=== PATIENT | female | born 1940 | race Caucasian/White ===

== ENCOUNTER 2019-11-03 14:52 | Emergency (ER) | payer OTHER ==
--- NOTE | 2019-11-03 15:17 | RAD REPORT ---
EXAM DESCRIPTION: CT - Ct Stroke Brain Wo Cont - 11/03/2019 3:07 pm CLINICAL HISTORY: Left-sided facial weakness, left-sided facial droop and slurred speech CLINICAL HISTORY: October 2016 TECHNIQUE: Axial 5 millimeter thick images of the head were obtained without IV contrast. All CT scans are performed using dose optimization technique as appropriate and may include automated exposure control or mA/KV adjustment according to patient size. FINDINGS: No intracranial hemorrhage, mass, or cerebral edema. No acute infarction identifiable. No cortical edema or sulcal effacement. Mild to moderate atrophy and chronic ischemic changes are presen t similar to comparison. Babcock matter-white matter differentiation is preserved. Ventricles are in proportion to volume loss. Arterial and physiologic calcifications are present. Visualized portions of the mastoid air cells, paranasal sinuses, and orbits are unremarkable. Findings telephoned to the referring clinician 3:13 p.m.. IMPRESSION: No CT evidence of acute intracranial process. Atrophy and chronic ischemic changes are present similar to 2016. Chronic ischemic changes can mask nonhemorrhagic acute infarction. MR brain followup can be obtained if there is ongoing concern for acute ischemia.
[2019-11-03 15:20] LABS: Absolute Lymphocytes (CBC) 1.9 K/uL (0.7-4.9); Basophils % 0.6 % (0-1.3); Hematocrit 39.4 % (36.0-45.0); Lymphocytes % 31.5 % (15.3-44.8); MPV 10.9 fL (7.6-11.3); RBC Red Blood Cell Count 4.03 M/uL (3.86-4.86)
[2019-11-03 15:23] LABS: Protime INR 0.98
[2019-11-03 15:26] LABS: Potassium 4.6 mmol/L (3.5-5.1)
--- NOTE | 2019-11-03 16:18 | RAD REPORT ---
EXAM DESCRIPTION: RAD - Chest Single View - 11/03/2019 3:44 pm CLINICAL HISTORY: Code stroke chest film, left-sided facial weakness, altered mental status COMPARISON: November 2017 TECHNIQUE: AP portable chest image was obtained 1518 hour . FINDINGS: Lung volumes are very low accentuating heart, vasculature and lung markings. No dense cons olidation or mass. No prominent pulmonary edema. Mild interstitial edema or infiltrate could be maske d. Pacemaker is again noted. PICC line has been removed since prior imaging. No measurable pleural ef fusion and no pneumothorax. No acute bony abnormality seen. No acute aortic findings suspected. IMPRESSION: Limited portable imaging without peripheral mass or consolidation. Mild failure/ volume overload could easily be masked by the chronic disease and low lung volume.
--- NOTE | 2019-11-03 16:18 | EKG ---
Test Date: 2019-11-03 Test Time: 15:20:21 Contracts Paralegal: DHARMESH MEASUREMENT RESULTS: Intervals: Rate: 72 NM: QRSD: 166 QT: 490 QTc: 536 [place]: P: NM: QRS: -56 T: 103 INTERPRETIVE STATEMENTS: Atrial-sensed ventricular-paced rhythm with occasional premature ventricular complexes Abnormal ECG Compared to ECG 11/19/2017 20:52:04 Ventricular premature complex(es) now present Electronically Signed On 11-03-19 16:18:04 SCHOOL PSYCHOLOGIST ASSISTANT by Lencho Figueroa
--- NOTE | 2019-11-03 19:04 | RAD REPORT ---
EXAM DESCRIPTION: CT - Head angio - 11/03/2019 6:05 pm CLINICAL HISTORY: stroke symptoms TECHNIQUE: During dynamic enhancement using nonionic IV contrast, axial 1 millimeter thick images of the head were obtained. Sagittal and axial reconstruction images were generated using MIP technique and reviewed. All CT scans are performed using dose optimization technique as appropriate and may include automated exposure control or mA/KV adjustment according to patient size. COMPARISON: CT head same date FINDINGS: No aneurysm or vascular malformation identified. Major venous sinuses are patent. No stenosis, named branch occlusion, vasculitis or other significant vascular finding identifiable. R ight posterior cerebral artery is supplied via enlarged posterior communicating artery as a normal va riant. Patient has prominent cavernous carotid calcifications. IMPRESSION: No occlusion, significant stenosis or other significant vascular finding.
--- NOTE | 2019-11-03 20:44 | ER ---
Nurse's Notes [facility] Name: Chio Abarca Age: 78 yrs Sex: Female : 1940 Arrival Date: 11/03/2019 Time: 14:55 Bed 7 Private MD: Diagnosis: Altered mental status, unspecified Presentation: 11/03 14:51 Presenting complaint: EMS states: called out for [facility] 45min-1 hr [employer] [facility] arrival, pt is sv normally A\T\Ox3 but was then A\T\Ox2 stated by staff, left sided facial droop, Afib w/ 2 runs of VTach. Transition of care: patient was received from another setting of care (long-term care facility), [facility]. Onset of symptoms was November 03, 2019. Risk Assessment: Do you want to hurt yourself or someone else? Patient reports no desire to harm self or others. Initial Sepsis Screen: Does the patient meet any 2 criteria? Altered Mental Status. No. Patient's initial sepsis screen is negative. Does the patient have a suspected source of infection? No. Patient's initial sepsis screen is negative. Care prior to arrival: IV attempted but was unsuccessful. 14:51 Method Of Arrival: EMS: [facility] sv 14:54 Note Called and spoke with nurse at [facility] and she stated that pt's last known sv well was around 1400. She stated that the pt was in the DONs office with the doctor and pt was normal at that time and placed out in the hallway. They went to go see her and noted she was not normal. Stated she had slurred speech, left sided arm and leg weakness, tongue was deviated to the right and no facial droop was noted at that time. Informed Dr Rees of what the HI staff stated and we are to call a Code Stroke. 14:56 Acuity: LADY 2 sv Triage Assessment: 14:55 General: Appears in no apparent distress. uncomfortable, well developed, Behavior is sv cooperative, appropriate for age, flat. Pain: Denies pain. Neuro: Level of Consciousness is awake, obeys commands, confused, Oriented to person, place, Moves all extremities. Speech is slurred, Facial droop on left. Cardiovascular: Patient's skin is warm and dry. Rhythm is atrial fibrillation. Respiratory: Airway is patent Respiratory effort is even, unlabored, Respiratory pattern is regular, symmetrical. Derm: Skin is pale. Historical: - Allergies: 15:10 Metformin HCl; sv - Home Meds: 16:27 Abilify 5 mg oral tab 2 tabs once daily [Active]; Depakote Sprinkles 125 mg Oral cpSP 8 sv caps nightly [Active]; Levemir 100 unit/mL subcutaneous soln 20 unit daily [Active]; levothyroxine 25 mcg tab 1 tab once daily [Active]; Novolog 100 unit/mL Sub-Q soln [Active]; simvastatin 20 mg Oral tab 1 tab once daily [Active]; Xarelto 20 mg Oral tab 1 tab nightly [Active]; Zoloft 100 mg Oral tab 1 tab once daily [Active]; - PMHx: 15:10 Diabetes - NIDDM; Hypothyroidism; iron deficiency; Dementia; Muscle weakness; Psychotic sv disorder w/ delusions; Anxiety; Depression; Hypertension; Atrial Fib; CHF; Cardiac pacemaker; Right ankle pressure ulcer; Arthritis; - Immunization history:: Adult Immunizations up to date. - Social history:: Smoking status: Patient/guardian denies using tobacco. - Ebola Screening: : No symptoms or risks identified at this time. Screenin:00 Abuse screen: Denies threats or abuse. Denies injuries from another. Nutritional sv screening: No deficits noted. Tuberculosis screening: No symptoms or risk factors identified. Fall Risk No fall in past 12 months (0 pts). Secondary diagnosis (15 points) dementia, No IV (0 pts). Ambulatory Aid- None/Bed Rest/Nurse Assist (0 pts). Gait- Normal/Bed Rest/Wheelchair (0 pts) Mental Status- Overestimates/Forgets Limitations (15 pts.). Total Castañeda Fall Scale indicates Low Risk Score (25-44 pts). Fall prevention measures have been instituted. Side Rails Up X 2 Placed close to Nursing Station Frequent Obs/Assesments occuring As available Patient and Family Educated on Fall Prevention Program and strategies. 16:22 Patient has been NPO before screening. The patient is alert, able to follow commands. sv The patient exhibits slurred or garbled speech. Provider notified of indication for Speech Therapy consult. The patient failed the bedside swallow screening. The patient will be kept NPO until cleared by Speech Therapy or Physician. Provider notified of bedside swallow screening results: Tj Rees MD. Assessment: 14:52 Reassessment: Dr Rees at the bedside. sv 15:01 Reassessment: Code Stroke called. sv 16:15 Reassessment: Patient appears in no apparent distress at this time. No changes from sv previously documented assessment. Patient and/or family updated on plan of care and expected duration. Pain level reassessed. Family at the bedside. 18:23 Reassessment: Patient appears in no apparent distress at this time. No changes from sv previously documented assessment. Patient and/or family updated on plan of care and expected duration. Pain level reassessed. 19:35 General: Appears in no apparent distress. comfortable, Behavior is calm, cooperative. ao Pain: Complains of pain in headache. Neuro: Level of Consciousness is awake, alert, obeys commands, Oriented to person, place, time, situation, Appropriate for age Moves all extremities. Full function Speech is normal. Cardiovascular: Heart tones S1 S2 Capillary refill < 3 seconds. Respiratory: Airway is patent Respiratory effort is even, unlabored, Respiratory pattern is regular, symmetrical. GI: Abdomen is round obese. : No signs and/or symptoms were reported regarding the genitourinary system. EENT: No signs and/or symptoms were reported regarding the EENT system. Derm: Skin is intact, Skin is pink, warm \T\ dry. Skin temperature is warm Decubitus. Musculoskeletal: No signs and/or symptoms reported regarding the musculoskeletal system. 20:16 Reassessment: Patient appears in no apparent distress at this time. Patient and/or ao family updated on plan of care and expected duration. Pain level reassessed. 20:53 Reassessment: Called report to [facility] and gave report to Angel. Pt is being ao discharge from the hospital. Angel stated he will call [facility] for transportation. 21:54 Reassessment: Patient appears in no apparent distress at this time. Patient is alert, ao oriented x 3, equal unlabored respirations, skin warm/dry/pink. Waiting on transportation. 22:09 Reassessment: Hand off care to [facility] for transportation. Pt VS stable. ao Vital Signs: 14:52 BP 145 / 80; Pulse 73; Resp 18; Temp 98; Pulse Ox 100% ; Pain 0/10; sv 15:16 BP 173 / 87; Pulse 69; Resp 18; Pulse Ox 100% ; sv 15:45 BP 164 / 88; Pulse 72; Resp 18; Pulse Ox 100% ; sv 16:23 BP 127 / 99; Pulse 74; Resp 19; Pulse Ox 100% ; sv 16:58 BP 146 / 86; Pulse 72; Resp 19; Pulse Ox 98% on R/A; sv 17:45 BP 157 / 99; Pulse 77; Resp 16; Pulse Ox 100% ; sv 18:23 BP 145 / 98; Pulse 71; Resp 20; Pulse Ox 100% ; sv 20:16 BP 149 / 103; Pulse 73; Resp 16; Pulse Ox 97% ; ao 21:39 BP 143 / 84; Pulse 77; Resp 19; Pulse Ox 100% on R/A; lp1 22:11 BP 123 / 86; Pulse 74; Resp 18; Pulse Ox 96% ; ao ED Course: 14:55 Patient arrived in ED. sv 14:55 Lala Kapoor, RN is Primary Nurse. sv 14:55 Initial lab(s) drawn, by ED staff, sent to lab. sv 14:57 Triage completed. sv 14:58 Tj Rees MD is Attending Physician. kdr 15:00 Inserted saline lock: 20 gauge in right antecubital area, using aseptic technique. sg Blood collected. 15:00 inspector coated fabrics on. Pulse ox on. NIBP on. sv 15:[address] via stretcher. sv 15:01 Patient has correct armband on for positive identification. Bed in low position. Call sg light in reach. Side rails up X2. 15:05 Arm band placed on. sv 15:10 Patient moved back from CT. sv 15:13 CT Stroke Brain w/o Contrast In Process Unspecified. EDMS 15:44 Stroke CXR 1 View In Process Unspecified. EDMS 17:[address] via stretcher. sv 18:06 Head angio In Process Unspecified. EDMS 18:15 Patient moved back from CT. sv 18:43 Awaiting radiology results. sv 19:04 Primary Nurse role handed off by Lala Kapoor, RN sv 19:04 Report given to Rose CALLES and Clemente CALLES. sv 19:08 Clemente Rodriguez RN is Primary Nurse. ao 22:11 No provider procedures requiring assistance completed. IV discontinued, intact, ao bleeding controlled, No redness/swelling at site. Pressure dressing applied. Administered Medications: No medications were administered Point of Care Testing: Blood Glucose: 15:00 Blood Glucose: 139 mg/dL; sg Ranges: Outcome: 20:44 Discharge ordered by . tw4 22:11 Discharged to residential. Report called to STEVAN Ortizautomatic beam warper tender form completed. ao Valuables list done. [facility] 22:11 Condition: stable 22:12 Instructed on discharge instructions, follow up and referral plans. ao 22:12 Patient left the ED. ao Signatures: Dispatcher [employer] EDMS Lala Kapoor RN RN Eddie Blancas RN RN Tj Humphries MD MD kdr Pena, Laura, RN RN 1 Clemente Rodriguez RN Lauri Mack MD MD tw4 Corrections: (The following items were deleted from the chart) 20:25 19:35 Neuro: Level of Consciousness is awake, alert, obeys commands, Oriented to ao person, place, time, situation, Appropriate for age Moves all extremities. Full function Speech is normal, ao
--- NOTE | 2019-11-03 20:45 | EDPHYS ---
Physician Documentation [facility] Name: Chio Abarca Age: 78 yrs Sex: Female : 1940 Arrival Date: 11/03/2019 Time: 14:55 Bed 7 Private MD: ED Physician Tj Rees HPI: 11/03 15:02 This 78 yrs old Female presents to ER via Unassigned with complaints of kdr Altered Mental Status. 15:02 This 78 yrs old Female presents to ER via Unassigned with complaints of kdr Altered Mental Status, slurred speech and left facial droop. 15:02 The patient presents with confusion, decreased mental status, dysphasia. Onset: The kdr symptoms/episode began/occurred suddenly, at 14:00. Possible causes: CVA or TIA. Associated signs and symptoms: Pertinent positives: confusion, weakness, slurred speech. Current symptoms: In the emergency department the patient's symptoms have improved, markedly. Patient's baseline: Neuro: alert and fully oriented, Motor: The patient is generally weak. The patient has not experienced similar symptoms in the past. The patient has been recently seen by a physician: the patient's primary care provider. The patient was in the nursing office at about 1400 when they put her in the winn and was at her baseline. When they came out, they noted that her speech was slurred and she was confused and generally weak with left facial droop. Historical: - Allergies: 15:10 Metformin HCl; sv - Home Meds: 16:27 Abilify 5 mg oral tab 2 tabs once daily [Active]; Depakote Sprinkles 125 mg Oral cpSP 8 sv caps nightly [Active]; Levemir 100 unit/mL subcutaneous soln 20 unit daily [Active]; levothyroxine 25 mcg tab 1 tab once daily [Active]; Novolog 100 unit/mL Sub-Q soln [Active]; simvastatin 20 mg Oral tab 1 tab once daily [Active]; Xarelto 20 mg Oral tab 1 tab nightly [Active]; Zoloft 100 mg Oral tab 1 tab once daily [Active]; - PMHx: 15:10 Diabetes - NIDDM; Hypothyroidism; iron deficiency; Dementia; Muscle weakness; Psychotic sv disorder w/ delusions; Anxiety; Depression; Hypertension; Atrial Fib; CHF; Cardiac pacemaker; Right ankle pressure ulcer; Arthritis; - Immunization history:: Adult Immunizations up to date. - Social history:: Smoking status: Patient/guardian denies using tobacco. - Ebola Screening: : No symptoms or risks identified at this time. ROS: 15:02 Constitutional: Negative for fever, chills, and weight loss, Eyes: Negative for injury, kdr pain, redness, and discharge, ENT: Negative for injury, pain, and discharge, Neck: Negative for injury, pain, and swelling, Cardiovascular: Negative for chest pain, palpitations, and edema, Respiratory: Negative for shortness of breath, cough, wheezing, and pleuritic chest pain, Abdomen/GI: Negative for abdominal pain, nausea, vomiting, diarrhea, and constipation, Back: Negative for injury and pain, : Negative for injury, bleeding, discharge, and swelling, MS/Extremity: Negative for injury and deformity, Skin: Negative for injury, rash, and discoloration, Psych: Negative for depression, anxiety, suicide ideation, homicidal ideation, and hallucinations, Allergy/Immunology: Negative for hives, rash, and allergies, Endocrine: Negative for neck swelling, polydipsia, polyuria, polyphagia, and marked weight changes, Hematologic/Lymphatic: Negative for swollen nodes, abnormal bleeding, and unusual bruising. 15:02 Neuro: Positive for altered mental status, speech changes, weakness. Exam: 15:02 Constitutional: This is a well developed, well nourished patient who is awake, alert, kdr and in no acute distress. Head/Face: Normocephalic, atraumatic. There is mild asymetry ot the face but it is not dramatic Eyes: Pupils equal round and reactive to light, extra-ocular motions intact. Lids and lashes normal. Conjunctiva and sclera are non-icteric and not injected. Cornea within normal limits. Periorbital areas with no swelling, redness, or edema. Neck: Trachea midline, no thyromegaly or masses palpated, and no cervical lymphadenopathy. Supple, full range of motion without nuchal rigidity, or vertebral point tenderness. No Meningismus. Chest/axilla: Normal chest wall appearance and motion. Nontender with no deformity. No lesions are appreciated. Cardiovascular: Regular rate and rhythm with a normal S1 and S2. No gallops, murmurs, or rubs. Normal PMI, no JVD. No pulse deficits. Respiratory: Lungs have equal breath sounds bilaterally, clear to auscultation and percussion. No rales, rhonchi or wheezes noted. No increased work of breathing, no retractions or nasal flaring. Abdomen/GI: Soft, non-tender, with normal bowel sounds. No distension or tympany. No guarding or rebound. No evidence of tenderness throughout. Back: No spinal tenderness. No costovertebral tenderness. Full range of motion. Skin: Warm, dry with normal turgor. Normal color with no rashes, no lesions, and no evidence of cellulitis. MS/ Extremity: Pulses equal, no cyanosis. Neurovascular intact. Full, normal range of motion. Psych: Awake, alert, with orientation to person, place and time. Behavior, mood, and affect are within normal limits. 15:02 Neuro: Orientation: to person, place \T\ time. Mentation: able to follow commands, slow to respond, confused. Vital Signs: 14:52 BP 145 / 80; Pulse 73; Resp 18; Temp 98; Pulse Ox 100% ; Pain 0/10; sv 15:16 BP 173 / 87; Pulse 69; Resp 18; Pulse Ox 100% ; sv 15:45 BP 164 / 88; Pulse 72; Resp 18; Pulse Ox 100% ; sv 16:23 BP 127 / 99; Pulse 74; Resp 19; Pulse Ox 100% ; sv 16:58 BP 146 / 86; Pulse 72; Resp 19; Pulse Ox 98% on R/A; sv 17:45 BP 157 / 99; Pulse 77; Resp 16; Pulse Ox 100% ; sv 18:23 BP 145 / 98; Pulse 71; Resp 20; Pulse Ox 100% ; sv 20:16 BP 149 / 103; Pulse 73; Resp 16; Pulse Ox 97% ; ao 21:39 BP 143 / 84; Pulse 77; Resp 19; Pulse Ox 100% on R/A; lp1 22:11 BP 123 / 86; Pulse 74; Resp 18; Pulse Ox 96% ; ao MDM: 20:44 Patient medically screened. 4 11/03 14:59 Order name: Basic Metabolic Panel; Complete Time: 17:48 kdr 11/03 14:59 Order name: CBC with Diff; Complete Time: 17:48 kdr 11/03 14:59 Order name: Protime (+inr); Complete Time: 17:48 kdr 11/03 14:59 Order name: Ptt, Activated; Complete Time: 17:48 kdr 11/03 14:59 Order name: CT Stroke Brain w/o Contrast; Complete Time: 17:48 kdr 11/03 15:12 Order name: Glucose, Ancillary Testing; Complete Time: 17:48 EDMS 11/03 14:59 Order name: Stroke CXR 1 View; Complete Time: 17:48 kdr 11/03 14:59 Order name: EKG; Complete Time: 15:00 kdr 11/03 14:59 Order name: Accucheck; Complete Time: 16:05 kdr 11/03 14:59 Order name: Cardiac monitoring; Complete Time: 16:05 kdr 11/03 14:59 Order name: EKG - Nurse/Tech; Complete Time: 16:18 kdr 11/03 14:59 Order name: IV Saline Lock; Complete Time: 16:06 kdr 11/03 17:27 Order name: Head angio; Complete Time: 20:09 EDAR 11/03 14:59 Order name: Labs collected and sent; Complete Time: 16:06 kdr 11/03 14:59 Order name: NPO; Complete Time: 16:06 kdr 11/03 14:59 Order name: O2 Per Protocol; Complete Time: 16:06 kdr 11/03 14:59 Order name: O2 Sat Monitoring; Complete Time: 16:06 kdr 11/03 14:59 Order name: Stroke Swallow Screen; Complete Time: 16:36 kdr Administered Medications: No medications were administered Point of Care Testing: Blood Glucose: 15:00 Blood Glucose: 139 mg/dL; sg Ranges: Critical Glucose Levels:Adult <50 mg/dl or >400 mg/dl <40 mg/dl or >180 mg/dl Disposition: 11/03/19 20:44 Discharged to Home. Impression: Altered mental status, unspecified. - Condition is Stable. - Discharge Instructions: Delirium. - Medication Reconciliation Form, Thank You Letter, Antibiotic Education, Prescription Opioid Use form. - Follow up: Private Physician; When: Upon discharge from the Emergency Department; Reason: Recheck today's complaints, Continuance of care. - Problem is new. - Symptoms have improved. Signatures: Dispatcher [employer] Lala Alarcon RN RN sv Rittger, Kevin, MD MD kdr Ortiz, Alex, RN RN ao Wadley, Terrence, MD MD tw4 Corrections: (The following items were deleted from the chart) 17:48 15:03 MR STROKE PROTOCOL+MRI.RAD.BRZ ordered. EDAR EDMS 22:12 20:44 11/03/2019 20:44 Discharged to Home. Impression: Altered mental status, ao unspecified. Condition is Stable. Forms are Medication Reconciliation Form, Thank You Letter, Antibiotic Education, Prescription Opioid Use. Follow up: Private Physician; When: Upon discharge from the Emergency Department; Reason: Recheck today's complaints, Continuance of care. Problem is new. Symptoms have improved. tw4
[2019-11-04 01:34] VITALS: TEMP 98
[2019-11-04 01:48] VITALS: BP 123/86; O2SAT 96
== END 2019-11-03 22:12 | disposition home or self-care (01) ==
LOC: ER 14:52
DX: R41.82 Altered mental status, unspecified (principal); Z88.8 Allergy status to other drugs, medicaments and biological substances; I10 Essential (primary) hypertension; E03.9 Hypothyroidism, unspecified; E11.9 Type 2 diabetes mellitus without complications; F41.8 Other specified anxiety disorders; I50.9 Heart failure, unspecified; Z95.0 Presence of cardiac pacemaker
CPT/HCPCS: 93005; 85025; 80048; 36415; 85610; 82947; 85730; 70496; 70450; 71045; 99285; Q9967

== ENCOUNTER 2019-11-06 08:25 | Emergency (ER) | payer OTHER ==
[2019-11-06] MEDS ORDERED: TETANUS & DIPHTHERIA TOX,ADULT 0.5 ML VIAL ONE (09:02)
[2019-11-06] MEDS ORDERED: LIDOCAINE 1% W/EPI 1:100,000 MDV 20 ML VIAL ONE (09:06)
--- NOTE | 2019-11-06 09:08 | RAD REPORT ---
EXAM DESCRIPTION: CT - Head C Spine Cap Wo Con - 11/06/2019 8:46 am TECHNIQUE: Computed axial tomography of the head and cervical spine was obtained. Coronal and sagitt al reconstruction was performed Computed axial tomography of the chest, abdomen and pelvis was obtained. Contrast was not requested. All CT scans are performed using dose optimization technique as appropriate and may include automated exposure control or mA/KV adjustment according to patient size. CLINICAL HISTORY: Head and neck injury with chest and abdominal pain status post fall COMPARISON: 2018 FINDINGS: Left supraorbital laceration An intracranial bleed is not seen. The ventricles are normal in caliber. An extra-axial fluid collection is not noted. . Fluid within the sinuses/mastoids is not seen. A cervical fracture is not seen. No dislocation is noted. Spondylosis involves the cervical spine The evaluation of mediastinum, edith, vessels, solid organs and bowel are limited secondary to the lac k of contrast administration. A mediastinal hematoma is not noted. A pleural effusion is not seen. A lung contusion is not present. The liver,spleen, pancreas, adrenals,kidneys and bladder did not demonstrated traumatic injury IMPRESSION: 1. No acute intracranial abnormality is seen. 2. A cervical fracture is not visualized. If the patient continues have symptoms to suggest intracran ial/spinal cord pathology MRI be recommended 3. No traumatic abnormality involving the chest/abdomen/pelvis.
--- NOTE | 2019-11-06 09:29 | ER ---
Nurse's Notes [facility] Name: Chio Abarca Age: 78 yrs Sex: Female : 1940 Arrival Date: 11/06/2019 Time: 08:27 Bed 4 Private MD: Diagnosis: Acute post-traumatic headache Presentation: 11/06 08:22 Presenting complaint: EMS states: pt from [facility], was sitting in chair tw2 in dining room, fell face forward, laceration to LEFT eyebrow area, vs stable, pt is on Xarelto, a\T\o to self and place. Transition of care: patient was not received from another setting of care. Onset of symptoms was November 06, 2019. Risk Assessment: Do you want to hurt yourself or someone else? Patient reports no desire to harm self or others. Initial Sepsis Screen: Does the patient meet any 2 criteria? No. Patient's initial sepsis screen is negative. Does the patient have a suspected source of infection? No. Patient's initial sepsis screen is negative. Care prior to arrival: None. 08:22 Method Of Arrival: EMS: [facility] tw2 08:22 Acuity: LADY 3 tw2 08:22 Mechanism of Injury: Fall sitting. Trauma event details: Injury occurred in the [address] Trauma Activation: Alert Physician: ED Physician; Name: ; Notified At: ; Arrived At: Physician: General Surgeon; Name: ; Notified At: ; Arrived At: Physician: Radiology; Name: ; Notified At: ; Arrived At: Physician: Respiratory; Name: ; Notified At: ; Arrived At: Physician: Lab; Name: ; Notified At: ; Arrived At: Historical: - Allergies: 08:36 Metformin HCl; tw2 - Home Meds: 08:36 Abilify 5 mg Oral tab 2 tabs once daily [Active]; Depakote Sprinkles 125 mg Oral cpSP 8 tw2 caps nightly [Active]; 08:40 Levemir 100 unit/mL subcutaneous soln [Active]; Novolog 100 unit/mL Sub-Q soln tw2 [Active]; simvastatin 20 mg Oral tab 1 tab once daily [Active]; Xarelto 20 mg Oral tab 1 tab nightly [Active]; acetaminophen 325 mg Oral tab 1 tab every 4 hours [Active]; Zoloft 100 mg Oral tab 1 tab once daily [Active]; levothyroxine 25 mcg tab 1 tab once daily [Active]; ipratropium-albuterol 0.5 mg-3 mg(2.5 mg base)/3 mL Inhl nebu 3 mL 4 times per day [Active]; - PMHx: 08:36 Right ankle pressure ulcer; Psychotic disorder w/ delusions; MUSCLE WEAKNESS; iron tw2 deficiency; Hypertension; Hypothyroidism; CARDIAC PACEMAKER; Atrial Fib; CHF; Dementia; Arthritis; Anxiety; Depression; Diabetes - IDDM; - Immunization history:: Adult Immunizations unknown. - Social history:: Smoking status: Patient/guardian denies using alcohol, street drugs, The patient lives with spouse. - Immunization history: Last tetanus immunization: unknown received vaccine today. - Ebola Screening: : Patient denies travel to an Ebola-affected area in the 21 days before illness onset. - Family history:: not pertinent. Screenin:22 Abuse screen: Denies threats or abuse. Denies injuries from another. Tuberculosis jl7 screening: No symptoms or risk factors identified. 09:09 Nutritional screening: No deficits noted. Fall Risk Fall in past 12 months (25 points). jl7 Secondary diagnosis (15 points) Alzheimer's, No IV (0 pts). Ambulatory Aid- Crutches/Cane/Walker (15 pts). Gait- Weak (10 pts.). Mental Status- Overestimates/Forgets Limitations (15 pts.). Total Castañeda Fall Scale indicates High Risk Score (45 or more points). Fall prevention measures have been instituted. Side Rails Up X 2 Placed Close to Nursing Station Frequent Obs/Assessments Occuring As available patient and family educated on Fall Prevention Program and Strategies. Primary Survey: 08:22 NO uncontrolled hemorrhage observed. A: Airway: patent. Breathing/Chest: Respiratory jl7 pattern: regular, Respiratory effort: spontaneous, unlabored, Chest inspection: symmetrical rise and fall of the chest. Circulation: Skin color: pink, Skin temperature: warm. Disability Alert. Exposure/Environment: A warming method has been applied: A warm blanket has been provided to the patient. 09:30 Reassessment Airway Airway Patent Breathing/Chest Respiratory pattern Regular tw2 Respiratory effort Spontaneous Unlabored Circulation Heart tones Present Disability Alert. Secondary Survey: 10:26 HEENT: Face Other laceration above LEFT eye brow, abrasion noted to left cheek. tw2 Gastrointestinal: Abdomen is soft, Bowel sounds present in all quadrants. : No signs and/or symptoms were reported regarding the genitourinary system. Musculoskeletal: No signs and/or symptoms reported regarding the musculoskeletal system. Assessment: 08:22 General: Appears in no apparent distress. Behavior is calm, cooperative, appropriate tw2 for age. Pain: Denies pain. Neuro: Level of Consciousness is awake, alert, Oriented to person. EENT: No signs and/or symptoms were reported regarding the EENT system. Cardiovascular: Heart tones S1 S2 Patient's skin is warm and dry. Rhythm is atrial fibrillation. Respiratory: Airway is patent Respiratory effort is even, unlabored, Respiratory pattern is regular, symmetrical, Breath sounds are clear bilaterally. GI: No signs and/or symptoms were reported involving the gastrointestinal system. Abdomen is round non-distended, obese, Bowel sounds present X 4 quads. : No signs and/or symptoms were reported regarding the genitourinary system. Derm: abrasion noted underneath LEFT eye with small laceration noted above LEFT eyebrow. Musculoskeletal: Range of motion: intact in all extremities. 09:26 Reassessment: Patient appears in no apparent distress at this time. Patient and/or tw2 family updated on plan of care and expected duration. Pain level reassessed. notified nurse at [place] of need for transportation back to their facility as pt has pending discharge, updated with pts status. 10:26 Reassessment: Patient appears in no apparent distress at this time. Patient and/or tw2 family updated on plan of care and expected duration. Pain level reassessed. Vital Signs: 08:25 BP 137 / 94; Pulse 85; Resp 19; Temp 97.9(TE); Pulse Ox 99% on R/A; Weight 83.91 kg tw2 (R); Height 5 ft. 2 in. (157.48 cm); 09:27 BP 154 / 94; Pulse 81; Resp 21; Pulse Ox 99% on R/A; tw2 10:26 BP 158 / 87; Pulse 81; Resp 17; Pulse Ox 97% on R/A; tw2 08:25 Body Mass Index 33.84 (83.91 kg, 157.48 cm) tw2 [place] Coma Score: 08:22 Eye Response: spontaneous(4). Verbal Response: oriented(5). Motor Response: obeys jl7 commands(6). Total: 15. Trauma Score (Adult): 08:22 Eye Response: spontaneous(1); Verbal Response: oriented(1); Motor Response: obeys jl7 commands(2); Systolic BP: > 89 mm Hg(4); Respiratory Rate: 10 to 29 per min(4); [place] Score: 15; Trauma Score: 12 ED Course: 08:22 Patient has correct armband on for positive identification. Placed in gown. Bed in low jl7 position. Call light in reach. Side rails up X2. 08:22 Patient maintains SpO2 saturation greater than 95% on room air. Thermoregulation: warm jl7 blanket given to patient. 08:22 Missed attempt(s): 22 gauge in right hand. per STEVAN Sharpe. Bleeding controlled, band aid tw2 applied, catheter tip intact. 08:27 Patient arrived in ED. tw2 08:27 Cintia Adams MD is Attending Physician. ma 08:29 Triage completed. tw2 08:30 Zoey Lacy RN is Primary Nurse. tw2 08:30 Arm band placed on. tw2 08:48 CT Traumagram (Head C Spine CAP wo con) In Process Unspecified. EDMS 09:16 Assist provider with laceration repair on middle aspect of left eyebrow and outer tw2 aspect of left eyebrow that was 2.5 cm. or less using sutures. Set up tray. Performed by Cintia Adams MD Patient tolerated well. 10:03 Awaiting transportation. tw2 10:29 Patient did not have IV access during this emergency room visit. tw2 Administered Medications: 09:04 Drug: Tetanus-Diphtheria Toxoid Adult 0.5 ml {Healthcare Analyst: [employer]. Exp: jl7 04/22/2021. Lot #: [id number]. } Route: IM; Site: right deltoid; 09:18 Follow up: Response: No adverse reaction tw2 09:18 Drug: Lidocaine-Epinephrine -1%: (1:100,000) 1 vials {Note: via Dr. Aadms.} Volume: tw2 20 ml; Route: Infiltration; Intake: 10:29 PO: 0ml; Total: 0ml. tw2 Outcome: :28 Discharge ordered by . ma2 10:28 Discharged to residential. Report called to nurse at [place] who arranged tw2 transportation back to their facility 10: Condition: stable 10:28 Patient's length of stay in the Emergency Department was greater than 2 hours. d/t transportation bk to pts facilityPatient's length of stay extended due to 10:29 Discharge instructions given to patient, residential, Instructed on discharge tw2 instructions, follow up and referral plans. wound care, suture removal in 5 days Demonstrated understanding of instructions, follow-up care, wound care. 10:29 Patient left the ED. tw2 Signatures: Dispatcher [employer] EDZoey Beasley RN RN tw2 Dell Pollock RN RN jl7 Cintia Adams MD MD ma2
--- NOTE | 2019-11-06 09:29 | EDPHYS ---
Physician Documentation [facility] Name: Chio Abarca Age: 78 yrs Sex: Female : 1940 Arrival Date: 11/06/2019 Time: 08:27 Bed 4 Private MD: ED Physician Cintia Adams HPI: 11/06 09:26 This 78 yrs old Female presents to ER via EMS with complaints of Fall Injury, ma2 Laceration To Scalp/Face. 09:26 Details of fall: The patient fell from seated position. Associated injuries: The ma2 patient sustained injury to the head. Severity of symptoms: At their worst the symptoms were mild, moderate, in the emergency department the symptoms are unchanged. The patient has experienced similar episodes in the past. Historical: - Allergies: 08:36 Metformin HCl; tw2 - Home Meds: 08:36 Abilify 5 mg Oral tab 2 tabs once daily [Active]; Depakote Sprinkles 125 mg Oral cpSP 8 tw2 caps nightly [Active]; 08:40 Levemir 100 unit/mL subcutaneous soln [Active]; Novolog 100 unit/mL Sub-Q soln tw2 [Active]; simvastatin 20 mg Oral tab 1 tab once daily [Active]; Xarelto 20 mg Oral tab 1 tab nightly [Active]; acetaminophen 325 mg Oral tab 1 tab every 4 hours [Active]; Zoloft 100 mg Oral tab 1 tab once daily [Active]; levothyroxine 25 mcg tab 1 tab once daily [Active]; ipratropium-albuterol 0.5 mg-3 mg(2.5 mg base)/3 mL Inhl nebu 3 mL 4 times per day [Active]; - PMHx: 08:36 Right ankle pressure ulcer; Psychotic disorder w/ delusions; MUSCLE WEAKNESS; iron tw2 deficiency; Hypertension; Hypothyroidism; CARDIAC PACEMAKER; Atrial Fib; CHF; Dementia; Arthritis; Anxiety; Depression; Diabetes - IDDM; - Immunization history:: Adult Immunizations unknown. - Social history:: Smoking status: Patient/guardian denies using alcohol, street drugs, The patient lives with spouse. - Immunization history: Last tetanus immunization: unknown received vaccine today. - Ebola Screening: : Patient denies travel to an Ebola-affected area in the 21 days before illness onset. - Family history:: not pertinent. ROS: 09:26 Constitutional: Negative for fever, chills, and weight loss. ma2 09:26 All other systems are negative. Exam: 09:26 Constitutional: This is a well developed, well nourished patient who is awake, alert, ma2 and in no acute distress. Head/Face: left eyebraw laceration 1 cm deep with skin loss Eyes: Pupils equal round and reactive to light, extra-ocular motions intact. Lids and lashes normal. Conjunctiva and sclera are non-icteric and not injected. Cornea within normal limits. Periorbital areas with no swelling, redness, or edema. ENT: Nares patent. No nasal discharge, no septal abnormalities noted. Tympanic membranes are normal and external auditory canals are clear. Oropharynx with no redness, swelling, or masses, exudates, or evidence of obstruction, uvula midline. Mucous membranes moist. Neck: Trachea midline, no thyromegaly or masses palpated, and no cervical lymphadenopathy. Supple, full range of motion without nuchal rigidity, or vertebral point tenderness. No Meningismus. Chest/axilla: Normal chest wall appearance and motion. Nontender with no deformity. No lesions are appreciated. Cardiovascular: Regular rate and rhythm with a normal S1 and S2. No gallops, murmurs, or rubs. Normal PMI, no JVD. No pulse deficits. Respiratory: Lungs have equal breath sounds bilaterally, clear to auscultation and percussion. No rales, rhonchi or wheezes noted. No increased work of breathing, no retractions or nasal flaring. Abdomen/GI: Soft, non-tender, with normal bowel sounds. No distension or tympany. No guarding or rebound. No evidence of tenderness throughout. Vital Signs: 08:25 BP 137 / 94; Pulse 85; Resp 19; Temp 97.9(TE); Pulse Ox 99% on R/A; Weight 83.91 kg tw2 (R); Height 5 ft. 2 in. (157.48 cm); 09:27 BP 154 / 94; Pulse 81; Resp 21; Pulse Ox 99% on R/A; tw2 10:26 BP 158 / 87; Pulse 81; Resp 17; Pulse Ox 97% on R/A; tw2 08:25 Body Mass Index 33.84 (83.91 kg, 157.48 cm) tw2 [place] Coma Score: 08:22 Eye Response: spontaneous(4). Verbal Response: oriented(5). Motor Response: obeys jl7 commands(6). Total: 15. Trauma Score (Adult): 08:22 Eye Response: spontaneous(1); Verbal Response: oriented(1); Motor Response: obeys jl7 commands(2); Systolic BP: > 89 mm Hg(4); Respiratory Rate: 10 to 29 per min(4); Joycelyn Score: 15; Trauma Score: 12 Laceration: 09:26 Wound Repair of 2cm ( 0.8in ) subcutaneous laceration to left eye. Distal ma2 neuro/vascular/tendon intact. Anesthesia: Local anesthetic administered with 10 mls of 1% lidocaine. Wound prep: Simple cleansing. Skin closed with 2 5-0 Prolene using simple sutures and sterile technique. Patient tolerated well. MDM: 08:27 Patient medically screened. ma2 09:26 Differential diagnosis: abrasion, closed head injury, contusion, fracture. Data ma2 reviewed: vital signs, nurses notes. Counseling: I had a detailed discussion with the patient and/or guardian regarding: the historical points, exam findings, and any diagnostic results supporting the discharge/admit diagnosis, the presence of at least one elevated blood pressure reading (>120/80) during this emergency department visit, the need for outpatient follow up. Response to treatment: the patient's symptoms have mildly improved after treatment. 11/06 08:29 Order name: CT Traumagram (Head C Spine CAP wo con); Complete Time: 09:26 fl2 11/06 08:29 Order name: Dressing - Wound; Complete Time: 09:33 fl2 11/06 09:06 Order name: Gloves, Sterile; Complete Time: 09:06 jl7 11/06 09:06 Order name: Setup Suture Tray; Complete Time: 09:06 Administered Medications: 09:04 Drug: Tetanus-Diphtheria Toxoid Adult 0.5 ml {Retail And Restaurant Associate: [employer]. Exp: jl7 04/22/2021. Lot #: [id number]. } Route: IM; Site: right deltoid; 09:18 Follow up: Response: No adverse reaction tw2 09:18 Drug: Lidocaine-Epinephrine -1%: (1:100,000) 1 vials {Note: via Dr. Adams.} Volume: tw2 20 ml; Route: Infiltration; Disposition: 11/06/19 09:28 Discharged to Home. Impression: Acute post-traumatic headache. - Condition is Stable. - Discharge Instructions: Concussion, Adult, Fall Prevention in Hospitals, Adult. - Medication Reconciliation Form, Thank You Letter, Antibiotic Education, Prescription Opioid Use form. - Follow up: Private Physician; When: Tomorrow; Reason: Continuance of care. - Notes: remove 2 stiches in 5 days Signatures: Dispatcher [employer] EDZoey Beasley RN RN tw2 Dell Pollock RN RN jl7 Cintia Adams MD MD ma2 Corrections: (The following items were deleted from the chart) 10:29 09:28 11/06/2019 09:28 Discharged to Home. Impression: Acute post-traumatic headache. tw2 Condition is Stable. Forms are Medication Reconciliation Form, Thank You Letter, Antibiotic Education, Prescription Opioid Use. Follow up: Private Physician; When: Tomorrow; Reason: Continuance of care. ma2
[2019-11-06 16:50] VITALS: TEMP 97.9
[2019-11-06 16:52] VITALS: BP 158/87; O2SAT 97
== END 2019-11-06 10:29 | disposition home or self-care (01) ==
LOC: ER 08:25
PROC: 0JQ10ZZ Repair Face Subcutaneous Tissue and Fascia, Open Approach (ICD-10-PCS; principal; 2019-11-06)
DX: G44.319 Acute post-traumatic headache, not intractable (principal); Z88.8 Allergy status to other drugs, medicaments and biological substances; E03.9 Hypothyroidism, unspecified; I10 Essential (primary) hypertension; E11.9 Type 2 diabetes mellitus without complications; Z95.0 Presence of cardiac pacemaker; Z79.4 Long term (current) use of insulin; I50.9 Heart failure, unspecified; Z23 Encounter for immunization
CPT/HCPCS: 70450; 71250; 72125; 90471; 90714; 99285

== ENCOUNTER 2020-01-16 05:11 | Emergency (ER) | payer OTHER ==
[2020-01-16] MEDS ORDERED: CEFAZOLIN/SWI 1gm 1 GM/10 ML SYR ONE (06:43)
[2020-01-16] MEDS ORDERED: HYDRALAZINE HCL 20 MG/ML VIAL ONE (06:43)
[2020-01-16] MEDS ORDERED: TETANUS & DIPHTHERIA TOX,ADULT 0.5 ML VIAL ONE (06:43)
--- NOTE | 2020-01-16 07:19 | ER ---
Nurse's Notes [facility] Name: Chio Abarca Age: 79 yrs Sex: Female : 1940 Arrival Date: 01/16/2020 Time: 05:15 Bed 8 Private MD: Diagnosis: Avulsion of scalp;Avulsion of left eye;Concussion without loss of consciousness;Contusion of unspecified part of head Presentation: 01/15 05:08 Chief complaint: EMS states: "We were called out to [facility] after a fall. the pt is jd3 reported to at some point last night or this morning fallen. she is at baseline mentation with her dementia, but she is on Xarelto. she has a hematoma to her left side of her forehead and a skin tear noted to the underside of her left eye.". Care prior to arrival: None. Mechanism of Injury: Fall out of bed. Trauma event details: Injury occurred in the [facility], Injury occurred: in an institution. Injury occurred: January 16, 2020. 05:08 Method Of Arrival: EMS: [facility] jd3 05:08 Acuity: LADY 2 jd3 05:36 Coronavirus screen: The patient has NOT traveled to [place] in the past 14 days. The jd3 patient has NOT had contact with known and/or suspected case of Coronavirus. Proceed with normal triage procedures. Ebola Screen: Patient negative for fever greater than or equal to 101.5 degrees Fahrenheit, and additional compatible Ebola Virus Disease symptoms. Initial Sepsis Screen: Does the patient meet any 2 criteria? No. Patient's initial sepsis screen is negative. Does the patient have a suspected source of infection? No. Patient's initial sepsis screen is negative. Risk Assessment: Do you want to hurt yourself or someone else? Patient reports no desire to harm self or others. 05:39 Onset of symptoms was January 16, 2020. jd3 05:41 Transition of care: patient was received from another setting of care [facility]. Trauma Activation: Alert Physician: ED Physician; Name: Dr. Murphy; Notified At: 05:08; Arrived At: 05:08 Physician: General Surgeon; Name: ; Notified At: 05:08; Arrived At: Physician: Radiology; Name: Meño Herrera; Notified At: 05:08; Arrived At: 05:08 Physician: Respiratory; Name: ; Notified At: 05:08; Arrived At: Physician: Lab; Name: ; Notified At: 05:08; Arrived At: Historical: - Allergies: 05:38 Metformin HCl; jd3 - Home Meds: 05:38 Abilify 5 mg Oral tab 2 tabs once daily [Active]; acetaminophen 325 mg Oral tab 1 tab jd3 every 4 hours [Active]; ipratropium-albuterol 0.5 mg-3 mg(2.5 mg base)/3 mL Inhl nebu 3 mL 4 times per day [Active]; levothyroxine 25 mcg tab 1 tab once daily [Active]; Novolog 100 unit/mL Sub-Q soln [Active]; Levemir 100 unit/mL subcutaneous soln [Active]; simvastatin 20 mg Oral tab 1 tab once daily [Active]; Depakote Sprinkles 125 mg Oral cpSP 8 caps nightly [Active]; Xarelto 20 mg Oral tab 1 tab nightly [Active]; Zoloft 100 mg Oral tab 1 tab once daily [Active]; - PMHx: 05:38 Hypothyroidism; Psychotic disorder w/ delusions; Diabetes - IDDM; iron deficiency; jd3 Right ankle pressure ulcer; MUSCLE WEAKNESS; Depression; CHF; Dementia; CARDIAC PACEMAKER; Atrial Fib; Arthritis; Anxiety; Hypertension; - Immunization history:: Adult Immunizations unknown. - Immunization history: Last tetanus immunization: unknown. - Social history:: Smoking status: unknown. Screenin:36 Abuse screen: Denies threats or abuse. Nutritional screening: No deficits noted. jd3 Tuberculosis screening: No symptoms or risk factors identified. 05:39 Fall Risk Fall in past 12 months (25 points). Ambulatory Aid- None/Bed Rest/Nurse jd3 Assist (0 pts). Gait- Impaired (20 pts.). Mental Status- Overestimates/Forgets Limitations (15 pts.). Total Castañeda Fall Scale indicates High Risk Score (45 or more points). Fall prevention measures have been instituted. Side Rails Up X 2 Placed Close to Nursing Station Frequent Obs/Assessments Occuring. Primary Survey: 05:32 NO uncontrolled hemorrhage observed. A: The patient is alert. Airway: patent, No jd3 supplemental oxygen in use on arrival. Oral cavity: clear, dried blood noted. Trachea midline. Breathing/Chest: Respiratory pattern: regular, Respiratory effort: spontaneous, unlabored, Breath sounds: clear, bilaterally. Chest inspection: symmetrical rise and fall of the chest. Circulation: Heart tones present. Pulses: palpable right radial artery, right dorsalis pedis artery, left radial artery and left dorsalis pedis artery. Skin color: pale, Skin temperature: warm. Disability Alert. Exposure/Environment: All clothing and personal items were removed. Forensic evidence collection is not deemed to be indicated at this time. Items placed in patient belonging bag. There is no evidence of uncontrolled external bleeding. Obvious injury(ies) are noted at this time: hematoma noted to left forehead and skin tear noted to under pt's left eye. A warming method has been applied: A warm blanket has been provided to the patient. 06:30 Reassessment Airway Airway Patent Oxygen No O2 Oral cavity Clear Trachea Midline jd3 Breathing/Chest Respiratory pattern Regular Respiratory effort Spontaneous Unlabored Breath sounds Clear Chest inspection Symmetrical Circulation Heart tones Present Pulses Palpable Color Ucon Temperature Warm Disability Alert. Secondary Survey: 05:34 HEENT: No deficits noted. Gastrointestinal: Abdomen is soft, non-distended, Bowel jd3 sounds present in all quadrants. Palpation No deficit noted. : No signs and/or symptoms were reported regarding the genitourinary system. Musculoskeletal: No signs and/or symptoms reported regarding the musculoskeletal system. Assessment: 05:29 General: Appears in no apparent distress. uncomfortable, Behavior is calm, jd3 inappropriate for age, restless. Pain: Unable to use pain scale. Does not appear to understand pain scale. FLACC scale score is 5 out of 10. Neuro: Level of Consciousness is awake, confused, Oriented to person. EENT: No signs and/or symptoms were reported regarding the EENT system. Cardiovascular: Heart tones S1 S2 present Capillary refill < 3 seconds Patient's skin is warm and dry. Respiratory: Airway is patent Respiratory effort is even, unlabored, Respiratory pattern is regular, symmetrical, Breath sounds are clear bilaterally. GI: No signs and/or symptoms were reported involving the gastrointestinal system. Abdomen is round non-distended, Abd is soft and non tender X 4 quads. : No signs and/or symptoms were reported regarding the genitourinary system. Derm: Skin is intact, Skin is dry, Skin is normal, Skin temperature is warm Wound noted left cheek Wound is skin tear noted under left eye. hematoma noted left forehead. Musculoskeletal: No signs and/or symptoms reported regarding the musculoskeletal system. 06:30 Reassessment: Patient appears in no apparent distress at this time. No changes from jd3 previously documented assessment. Patient and/or family updated on plan of care and expected duration. Pain level reassessed. 07:00 Reassessment: Report received from STEVAN Sood. Pt currently resting in bed with eyes aa5 closed, respirations even and unlabored, skin is pink/warm/dry. Awaiting disposition.. 07:58 Reassessment: Spoke to staff at [facility] to attempt to give report to nurse, staff aa requests for me to call back around 0900 to give report. . 08:00 Reassessment: Pt resting in bed with eyes closed, respirations even and unlabored, skin aa5 is pink/warm/dry. Pt repositioned in bed. Pt is A\\T\\O x none to person at times, pt has hx of dementia. . 09:20 Reassessment: Resting in bed with eyes closed. Equal and unlabored, skin is aa5 pink/warm/dry.. 09:26 Reassessment: Report given to Geraldine (Nurse at [facility]) and states she called [facility] aa5 transportation and ETA is 1hr to 1 1/2 hours. . 10:00 Reassessment: Pt repositioned in bed, awaiting transportation back to snf. . aa5 10:45 Reassessment: Pt cleaned of urinary incontinence, clean brief applied. . aa5 10:45 Reassessment: [facility] at bedside.. aa5 Vital Signs: 05:35 Pulse 95; Resp 20 S; Temp 97.4(TE); Pulse Ox 100% on R/A; Weight 99.79 kg (R); Height 5 jd3 ft. 3 in. (160.02 cm) (R); Pain 5/10; 07:10 BP 147 / 99; Pulse 97; Resp 19 S; Pulse Ox 99% on R/A; jd3 08:10 BP 147 / 94; Pulse 87; Resp 18 S; Temp 97.8(TE); Pulse Ox 98% on R/A; aa5 09:10 BP 147 / 93; Pulse 87; Resp 16 S; Pulse Ox 98% on R/A; aa5 10:45 BP 134 / 79; Pulse 83; Resp 18 S; Pulse Ox 99% on R/A; aa5 05:35 Body Mass Index 38.97 (99.79 kg, 160.02 cm) jd3 Joycelyn Coma Score: 05:35 Eye Response: spontaneous(4). Verbal Response: confused(4). Motor Response: localizes jd3 pain(5). Total: 13. 07:10 Eye Response: spontaneous(4). Verbal Response: confused(4). Motor Response: localizes jd3 pain(5). Total: 13. Trauma Score (Adult): 05:35 Eye Response: spontaneous(1); Verbal Response: confused(1); Motor Response: localizes jd3 pain(1); Systolic BP: > 89 mm Hg(4); Respiratory Rate: 10 to 29 per min(4); Joycelyn Score: 13; Trauma Score: 11 07:10 Eye Response: spontaneous(1); Verbal Response: confused(1); Motor Response: localizes jd3 pain(1); Systolic BP: > 89 mm Hg(4); Respiratory Rate: 10 to 29 per min(4); Hilliards Score: 13; Trauma Score: 11 08:10 Eye Response: spontaneous(1); Verbal Response: confused(1); Motor Response: localizes aa5 pain(1); Systolic BP: > 89 mm Hg(4); Respiratory Rate: 10 to 29 per min(4); Joycelyn Score: 13; Trauma Score: 11 09:10 Eye Response: spontaneous(1); Verbal Response: confused(1); Motor Response: localizes aa5 pain(1); Systolic BP: > 89 mm Hg(4); Respiratory Rate: 10 to 29 per min(4); Hilliards Score: 13; Trauma Score: 11 10:45 Eye Response: spontaneous(1); Verbal Response: confused(1); Motor Response: localizes aa5 pain(1); Systolic BP: > 89 mm Hg(4); Respiratory Rate: 10 to 29 per min(4); Joycelyn Score: 13; Trauma Score: 11 ED Course: 05:15 Patient arrived in ED. bb 05:16 Lauri Murphy MD is Attending Physician. tw4 05:20 Barrie Lopes, STEVAN is Primary Nurse. jd3 05:29 Triage completed. jd3 05:36 Patient has correct armband on for positive identification. Placed in gown. Bed in low jd3 position. Call light in reach. Side rails up X2. 05:36 Patient maintains SpO2 saturation greater than 95% on room air. jd3 05:37 Arm band placed on. jd3 05:39 Thermoregulation: warm blanket given to patient. jd3 05:47 CT Facial Bones W/O Con In Process Unspecified. EDMS 05:48 CT Head C Spine In Process Unspecified. EDMS 05:57 Shoulder Left (2 View) XRAY In Process Unspecified. EDMS 06:57 No provider procedures requiring assistance completed. Inserted saline lock: 22 gauge mg2 in right forearm, using aseptic technique. 10:47 IV discontinued, intact, bleeding controlled, No redness/swelling at site. Pressure aa5 dressing applied. Administered Medications: 06:56 Not Given (Physician Discretion): Ancef 1 grams IM once mg2 06:56 Drug: Ancef 1 grams Route: IVPB; Site: right forearm; mg2 06:57 Drug: hydrALAZINE 20 mg Route: IV; Rate: bolus; Site: right forearm; mg2 06:57 Drug: Tetanus-Diphtheria Toxoid Adult 0.5 ml {Director Of Securities And Real Estate: [employer]. Exp: mg2 02/20/2020. Lot #: [id number]. } Route: IM; Site: right deltoid; 07:15 Drug: fentaNYL (PF) 12.5 mcg Route: IVP; Site: right forearm; jd3 Intake: 10:45 Pt voided once aa5 Outcome: 07:19 Discharge ordered by . tw4 07:19 Patient's length of stay was not longer than 2 hours. aa5 11:00 Discharged to snf. Report called to STEVAN Chandler aa5 11:00 Condition: stable 11:00 Discharge instructions given to STEVAN [facility] and [facility] Instructed on discharge instructions, follow up and referral plans. Demonstrated understanding of instructions. 11:02 Patient left the ED. iw Signatures: Dispatcher [employer] EDDesiree Us RN RN Jammie Olivera RN RN Amelia Stanton RN RN aa Barrie Lopes RN RN jd3 Lauri Murphy MD MD tw4 Yazan Walton RN RN mg2 Corrections: (The following items were deleted from the chart) 11:17 07:00 Reassessment: Report received from STEVAN Sood. Pt currently resting in bed with aa5 eyes closed, respirations even and unlabored, skin is pink/warm/dry. . aa5
--- NOTE | 2020-01-16 07:19 | EDPHYS ---
Physician Documentation [facility] Name: Chio Abarca Age: 79 yrs Sex: Female : 1940 Arrival Date: 01/16/2020 Time: 05:15 Bed 8 Private MD: ED Physician Lauri Murphy HPI: 01/15 07:20 This 79 yrs old Female presents to ER via EMS with complaints of Fall Injury. tw4 07:20 Details of fall: The patient fell from seated position, off the edge of a bed. Onset: tw4 The symptoms/episode began/occurred today. Associated injuries: The patient sustained left cheek. Severity of symptoms: At their worst the symptoms were moderate, in the emergency department the symptoms are unchanged. The patient has not experienced similar symptoms in the past. Historical: - Allergies: 05:38 Metformin HCl; jd3 - Home Meds: 05:38 Abilify 5 mg Oral tab 2 tabs once daily [Active]; acetaminophen 325 mg Oral tab 1 tab jd3 every 4 hours [Active]; ipratropium-albuterol 0.5 mg-3 mg(2.5 mg base)/3 mL Inhl nebu 3 mL 4 times per day [Active]; levothyroxine 25 mcg tab 1 tab once daily [Active]; Novolog 100 unit/mL Sub-Q soln [Active]; Levemir 100 unit/mL subcutaneous soln [Active]; simvastatin 20 mg Oral tab 1 tab once daily [Active]; Depakote Sprinkles 125 mg Oral cpSP 8 caps nightly [Active]; Xarelto 20 mg Oral tab 1 tab nightly [Active]; Zoloft 100 mg Oral tab 1 tab once daily [Active]; - PMHx: 05:38 Hypothyroidism; Psychotic disorder w/ delusions; Diabetes - IDDM; iron deficiency; jd3 Right ankle pressure ulcer; MUSCLE WEAKNESS; Depression; CHF; Dementia; CARDIAC PACEMAKER; Atrial Fib; Arthritis; Anxiety; Hypertension; - Immunization history:: Adult Immunizations unknown. - Immunization history: Last tetanus immunization: unknown. - Social history:: Smoking status: unknown. ROS: 07:20 Unable to obtain ROS due to patient's speech is incomprehensible, patient's inability tw4 to understand questions. Exam: 07:20 Chest/axilla: Normal chest wall appearance and motion. Nontender with no deformity. tw4 No lesions are appreciated. Cardiovascular: Regular rate and rhythm with a normal S1 and S2. No gallops, murmurs, or rubs. Normal PMI, no JVD. No pulse deficits. Respiratory: Lungs have equal breath sounds bilaterally, clear to auscultation and percussion. No rales, rhonchi or wheezes noted. No increased work of breathing, no retractions or nasal flaring. Abdomen/GI: Soft, non-tender, with normal bowel sounds. No distension or tympany. No guarding or rebound. No evidence of tenderness throughout. Back: No spinal tenderness. No costovertebral tenderness. Full range of motion. MS/ Extremity: Pulses equal, no cyanosis. Neurovascular intact. Full, normal range of motion. Neuro: Awake and alert, GCS 15, oriented to person, place, time, and situation. Cranial nerves II-XII grossly intact. Motor strength 5/5 in all extremities. Sensory grossly intact. Cerebellar exam normal. Normal gait. 07:20 Head/face: Noted is contusion, that is deep, of the left cheek, ecchymosis, that is mild, of the left cheek, a laceration(s), that is superficial, 20 cm(s), of the left cheek. Vital Signs: 05:35 Pulse 95; Resp 20 S; Temp 97.4(TE); Pulse Ox 100% on R/A; Weight 99.79 kg (R); Height 5 jd3 ft. 3 in. (160.02 cm) (R); Pain 5/10; 07:10 BP 147 / 99; Pulse 97; Resp 19 S; Pulse Ox 99% on R/A; jd3 08:10 BP 147 / 94; Pulse 87; Resp 18 S; Temp 97.8(TE); Pulse Ox 98% on R/A; aa5 09:10 BP 147 / 93; Pulse 87; Resp 16 S; Pulse Ox 98% on R/A; aa5 10:45 BP 134 / 79; Pulse 83; Resp 18 S; Pulse Ox 99% on R/A; aa5 05:35 Body Mass Index 38.97 (99.79 kg, 160.02 cm) jd3 Joycelyn Coma Score: 05:35 Eye Response: spontaneous(4). Verbal Response: confused(4). Motor Response: localizes jd3 pain(5). Total: 13. 07:10 Eye Response: spontaneous(4). Verbal Response: confused(4). Motor Response: localizes jd3 pain(5). Total: 13. Trauma Score (Adult): 05:35 Eye Response: spontaneous(1); Verbal Response: confused(1); Motor Response: localizes jd3 pain(1); Systolic BP: > 89 mm Hg(4); Respiratory Rate: 10 to 29 per min(4); Vallejo Score: 13; Trauma Score: 11 07:10 Eye Response: spontaneous(1); Verbal Response: confused(1); Motor Response: localizes jd3 pain(1); Systolic BP: > 89 mm Hg(4); Respiratory Rate: 10 to 29 per min(4); Joycelyn Score: 13; Trauma Score: 11 08:10 Eye Response: spontaneous(1); Verbal Response: confused(1); Motor Response: localizes aa5 pain(1); Systolic BP: > 89 mm Hg(4); Respiratory Rate: 10 to 29 per min(4); Vallejo Score: 13; Trauma Score: 11 09:10 Eye Response: spontaneous(1); Verbal Response: confused(1); Motor Response: localizes aa5 pain(1); Systolic BP: > 89 mm Hg(4); Respiratory Rate: 10 to 29 per min(4); Joycelyn Score: 13; Trauma Score: 11 10:45 Eye Response: spontaneous(1); Verbal Response: confused(1); Motor Response: localizes aa5 pain(1); Systolic BP: > 89 mm Hg(4); Respiratory Rate: 10 to 29 per min(4); Joycelyn Score: 13; Trauma Score: 11 MDM: 05:18 Patient medically screened. tw4 07:20 Differential diagnosis: abrasion, closed head injury, contusion. Data reviewed: vital tw4 signs, nurses notes. Data interpreted: Pulse oximetry: Interpretation:. Counseling: I had a detailed discussion with the patient and/or guardian regarding: the historical points, exam findings, and any diagnostic results supporting the discharge/admit diagnosis. Special discussion: Based on the patient's history, exam and DX evaluation, there is no indication for emergent intervention or inpatient TX. It is understood by the patient/guardian that if the SXs persist or worsen they need to return immediately for re-evaluation. I discussed with the patient/guardian in detail that at this point there is no indication for admission to the hospital. It is understood, however, that if the symptoms persist or worsen the patient needs to return immediately for re-evaluation. 07:22 ED course: no suture repair needed wound cleaned and dressed with non adherent dressing.tw4 01/15 05:17 Order name: CT Head C Spine tw4 01/15 05:17 Order name: CT Facial Bones W/O Con 4 01/15 05:19 Order name: Shoulder Left (2 View) XRAY Administered Medications: 06:56 Not Given (Physician Discretion): Ancef 1 grams IM once mg2 06:56 Drug: Ancef 1 grams Route: IVPB; Site: right forearm; mg2 06:57 Drug: hydrALAZINE 20 mg Route: IV; Rate: bolus; Site: right forearm; mg2 06:57 Drug: Tetanus-Diphtheria Toxoid Adult 0.5 ml {Solar Electric Practitioner: [employer]. Exp: mg2 02/20/2020. Lot #: [id number]. } Route: IM; Site: right deltoid; 07:15 Drug: fentaNYL (PF) 12.5 mcg Route: IVP; Site: right forearm; jd3 Disposition: 01/16/20 07:19 Discharged to Home. Impression: Avulsion of scalp, Avulsion of left eye, Concussion without loss of consciousness, Contusion of unspecified part of head. - Condition is Stable. - Discharge Instructions: Contusion, Deep Skin Avulsion, Skin Tear Care, [id number], Head Injury, Adult, [id number]. - Prescriptions for Cleocin 150 mg Oral Capsule - take 1 capsule by ORAL route every 6 hours for 10 days; 40 capsule. - SBAR form, Medication Reconciliation Form, Thank You Letter, Antibiotic Education, Prescription Opioid Use form. - Follow up: Private Physician; When: Upon discharge from the Emergency Department; Reason: Recheck today's complaints, Continuance of care, Re-evaluation by your physician. - Problem is new. - Symptoms have improved. Signatures: Dispatcher [employer] EDMS Jammie Olivera RN RN iw Barrie Lopes RN RN jLauri Kwok MD MD tw4 Yazan Walton RN RN mg2 Corrections: (The following items were deleted from the chart) 11:02 07:19 01/16/2020 07:19 Discharged to Home. Impression: Avulsion of scalp; Avulsion of iw left eye; Concussion without loss of consciousness; Contusion of unspecified part of head. Condition is Stable. Forms are Medication Reconciliation Form, Thank You Letter, Antibiotic Education, Prescription Opioid Use. Follow up: Private Physician; When: Upon discharge from the Emergency Department; Reason: Recheck today's complaints, Continuance of care, Re-evaluation by your physician. Problem is new. Symptoms have improved. tw4
[2020-01-16] MEDS ORDERED: FENTANYL CITR 100 MCG/2 ML ONE (07:20)
[2020-01-16 11:16] VITALS: BP 147/99; O2SAT 99
[2020-01-16 11:18] VITALS: TEMP 97.4
--- NOTE | 2020-01-16 12:05 | RAD REPORT ---
EXAM DESCRIPTION: RAD - Shoulder Left 2 View - 01/16/2020 5:59 am CLINICAL HISTORY: DEFORMITY Pain and swelling COMPARISON: No comparisons FINDINGS: Mild AC joint and glenohumeral joint arthritic changes are present. No acute fracture or d islocation seen.
--- NOTE | 2020-01-17 14:24 | RAD REPORT ---
EXAM DESCRIPTION: CT Head and Cervical Spine Without Intravenous Contrast CLINICAL HISTORY: The patient is 79 years old and is Female; PAIN TECHNIQUE: Axial computed tomography images of the head/brain and cervical spine without intravenous contrast. Sagittal and coronal reformatted images were created and reviewed. This CT exam was pe rformed using one or more of the following dose reduction techniques: automated exposure control, a djustment of the mA and/or kV according to patient size, and/or use of iterative reconstruction techn ique. COMPARISON: No relevant prior studies available. FINDINGS: BRAIN: There is diffuse cerebral atrophy present, consistent with this patient's age. There is patchy hypoattenuation of the deep white matter which is non-specific, but most likely owing to chronic small vessel ischemic change in a patient of this age group. No intracranial hemorrhage , mass effect, or midline shift is seen. There are no extra-axial fluid collections. VENTRICLES: Unremarkable. No ventriculomegaly. SKULL: The bones are diffusely osteopenic. Vertebral body heights and alignment are maintained. No acute fracture. SINUSES: Unremarkable as visualized. No acute sinusitis. MASTOID AIR CELLS: Unremarkable as visualized. No mastoid effusion. VERTEBRAE: See above. DISCS/SPINAL CANAL/NEURAL FORAMINA: There is multilevel degenerative change with intervertebral disc space narrowing, osteophyte formation, facet arthropathy is present. Neural foraminal narrowing is noted at multiple levels secondary to disc osteophyte complexes. SOFT TISSUES: Left frontal scalp soft tissue swelling is present. LUNG APICES: The lung apices are clear. IMPRESSION: 1. Age-related atrophy and chronic white matter ischemic changes, with no evidence of an acute intracranial abnormality. Left frontal scalp soft tissue swelling. 2. Moderate spondylosis of the cervical spine without acute findings. Electronically signed by: Dahlia Clay MD 01/16/2020 6:05 AM FITTER/WELDER Due to temporary technical issues with the PACS/Fluency reporting system, reports are being signed by the in house radiologist as a courtesy to ensure prompt reporting. The interpreting radiologist is f ully responsible for the content of the report.
--- NOTE | 2020-01-17 14:26 | RAD REPORT ---
EXAM DESCRIPTION: CT Maxillofacial Without Intravenous Contrast CLINICAL HISTORY: The patient is 79 years old and is Female; TRAUMA pain TECHNIQUE: Axial computed tomography images of the face without intravenous contrast. Sagittal and coronal reformatted images were created and reviewed. This CT exam was performed using one or more of the following dose reduction techniques: automated exposure control, adjustment of the mA and/o r kV according to patient size, and/or use of iterative reconstruction technique. COMPARISON: No relevant prior studies available. FINDINGS: BONES/JOINTS: The orbital floors and evans are intact. The zygomatic arches and pteryg oid plates are intact. The visualized maxilla and mandible are intact. SOFT TISSUES: Unremarkable. ORBITS: The globes, extraocular muscles, and optic nerve complexes are within normal limits. SINUSES: The visualized paranasal sinuses are clear. No air-fluid levels. NASAL CAVITY/SEPTUM: The nasal bones are intact. IMPRESSION: No acute findings in the face. Electronically signed by: Dahlia Clay MD 01/16/2020 5:57 AM PROJECT MANAGEMENT CONSULTANT Due to temporary technical issues with the PACS/Fluency reporting system, reports are being signed by the in house radiologist as a courtesy to ensure prompt reporting. The interpreting radiologist is f ully responsible for the content of the report.
== END 2020-01-16 11:02 | disposition home or self-care (01) ==
LOC: ER 05:11
DX: S06.0X0A Concussion without loss of consciousness, initial encounter (principal); S05.72XA Avulsion of left eye, initial encounter; W06.XXXA Fall from bed, initial encounter; Y93.9 Activity, unspecified; Y92.9 Unspecified place or not applicable; Z23 Encounter for immunization; Z79.01 Long term (current) use of anticoagulants; Z79.4 Long term (current) use of insulin; Z95.0 Presence of cardiac pacemaker; I10 Essential (primary) hypertension; E03.9 Hypothyroidism, unspecified; F41.9 Anxiety disorder, unspecified; E11.9 Type 2 diabetes mellitus without complications; F32.9 Major depressive disorder, single episode, unspecified; I48.91 Unspecified atrial fibrillation
CPT/HCPCS: 70450; 72125; 70486; 76377; 73030; 90471; 90714; 96375; 96374; 99284; J0360; J3010; J0690